=== PATIENT | female | born 1980 | race Caucasian/White ===

== ENCOUNTER 2022-09-04 15:58 | Emergency (ER) | payer SELFPAY ==
[~2022-09-04] VITALS: Ht 165.1 cm; Wt 91.0 kg
[2022-09-04] MEDS ORDERED: FAMOTIDINE 20MG/2ML VIAL IV ONE (16:15)
[2022-09-04] MEDS ORDERED: DEXAMETHASONE 4MG/ML 1ML VIAL IV ONE (16:15)
[2022-09-04] MEDS ORDERED: DIPHENHYDRAMINE 50MG/ML VIAL IV ONE (16:15)
[2022-09-04] MEDS ORDERED: CETI-89 MT (16:22)
[2022-09-04] MEDS ORDERED: EPIN0.3P3 IM (16:22)
[2022-09-04] MEDS ORDERED: P50 MT (16:23)
[2022-09-04 16:45] VITALS: BP 136/88
== END 2022-09-04 17:04 | disposition home or self-care (01) ==
LOC: ER 15:58
DX: T78.40XA Allergy, unspecified, initial encounter (principal); X58.XXXA Exposure to other specified factors, initial encounter; L50.9 Urticaria, unspecified; R06.02 Shortness of breath
CPT/HCPCS: 96374; 96375; 99284; J1100; J1200; J3490; Z7610